=== PATIENT | female | born 1950 | race Caucasian/White ===

== ENCOUNTER 2017-09-14 11:56 | Day surgery (SDC) | payer MEDICARE, MEDICAID ==
[2017-09-11 12:17] LABS: BASOPHILS # (AUTO) 0.1 X10'3 (0-0.2); EOSINOPHILS # (AUTO) 0.5 X10'3 (0-0.9); EOSINOPHILS % (AUTO) 6.1 % (0-6); LYMPHOCYTES # (AUTO) 1.8 X10'3 (1.1-4.8); MEAN CORPUSCULAR HEMOGLOBIN 29.5 PG (27.0-31.0); MEAN CORPUSCULAR HGB CONC 34.3 % (33.0-36.5); MEAN CORPUSCULAR VOLUME 85.9 FL (78-98); MEAN PLATELET VOLUME 7.8 FL (7.4-10.4); MONOCYTES # (AUTO) 0.5 X10'3 (0-0.9); MONOCYTES % (AUTO) 6.1 % (2-12); NEUTROPHILS # (AUTO) 5.9 X10'3 (1.8-7.7); NEUTROPHILS % (AUTO) 66.8 % (42-75); PRE OP HEMATOCRIT 39.2 % (35.0-45.0); PRE OP HEMOGLOBIN 13.4 g/dL (12.0-16.0); PRE OP PLATELET COUNT 239 X10'3 (140-440); RED BLOOD COUNT 4.56 X10'6 (4.20-5.60); RED CELL DISTRIBUTION WIDTH 15.2 % (11.5-14.5)
[2017-09-11 12:18] LABS: PRE OP INR 0.9 INR; PRE OP PROTIME 9.5 SECONDS (9.0-12.0)
[2017-09-11 12:25] LABS: ALBUMIN 3.2 G/DL (3.4-5.0); ALBUMIN/GLOBULIN RATIO 0.8 (1.1-1.5); ALKALINE PHOSPHATASE 106 IU/L (46-116); BLOOD UREA NITROGEN 28 MG/DL (7-18); BUN/CREATININE RATIO 33.3 (6.6-38.0); CALCIUM 8.5 MG/DL (8.5-10.1); CHLORIDE 102 MMOL/L (99-107); CREATININE 0.84 MG/DL (0.40-0.90); PRE OP ALT 23 U/L (30-65); PRE OP ANION GAP 7 (8-16); PRE OP AST 13 U/L (10-37); PRE OP BILIRUB, TOTAL 0.3 MG/DL (0.0-1.0); PRE OP GLUCOSE 95 MG/DL (70-104); PRE OP POTASSIUM 3.5 MMOL/L (3.4-5.1); PRE OP SODIUM 141 MMOL/L (135-145); TOTAL CARBON DIOXIDE 31.8 MMOL/L (24-32); eGFR 68 ML/MIN
[2017-09-14] VITALS (17 sets, daily range): BP systolic 101–167; BP diastolic 55–102
[~2017-09-14] VITALS: Ht 160 cm; Wt 88.1 kg
[~2017-09-14 11:56] MED LIST: ASPI-845 PO; ATOR40TA PO; CLOT15CR5 TOP; CYAN100097 PO; DOCUMENT DATE & TIME OF BETA-BLOCKER PO ONE; FURO-150 PO; GABA600T2 PO; HYDR-569 PO; HYDR12.5 PO; KEN0.1O TP; METO-539 PO; NITR0.3T10 SL; OMEP20CA10 PO; PROM25TA14 PO; VENL75TA90 PO; cefazolin/dext.iso 2gm/50ml 50 ML IV ONE; famotidine 20mg tablet PO ONE; vancomycin inj 1,500 MG in normal saline 300ml IV soln IV ONE
[2017-09-14] MEDS ORDERED: LIDOcaine 1% (10mg/ml) 2ml vial ONE (12:18)
[2017-09-14] MEDS: ringers solution, lacted 1,000 ML IV SCH ×4 (12:42→17:22)
[2017-09-14] MEDS ORDERED: BUPIVAcaine/PF 2.5 mg/ml (0.25%) 30ml vial ONE (12:51)
[2017-09-14] MEDS ORDERED: dexamethasone sod phosphate 4mg/ml inj. ONE (13:15)
[2017-09-14] MEDS ORDERED: sevoflurane 250ml liquid IH ONE (13:15)
[2017-09-14] MEDS ORDERED: fentaNYL/PF 50MCG/1 ML 2ML syringe ONE (13:26)
[2017-09-14] MEDS ORDERED: midazolam 2 mg/2 ml injection ONE (13:38)
[2017-09-14] MEDS ORDERED: LIDOcaine 2% (20mg/ml) 5ml vial ONE (13:50)
[2017-09-14] MEDS ORDERED: ePHEDrine 50MG/ML INJ. ONE (13:50)
[2017-09-14] MEDS ORDERED: propofol inj 20 ML IV ONE (13:50)
[2017-09-14] MEDS ORDERED: ondansetron/PF 4mg/2ml inj IV PRN ×2 (14:55→15:45)
[2017-09-14] MEDS ORDERED: proCHLORperazine 10 MG/2 ml inj IV PRN (14:55)
[2017-09-14] MEDS ORDERED: morphine 4 MG/ML inj SYRINge IV PRN ×3 (14:55→19:55)
[2017-09-14] MEDS ORDERED: hydrALAZINE 20mg/ml inj. IV PRN (14:55)
[2017-09-14] MEDS ORDERED: ringers solution, lacted 1,000 ML IV SCH (14:55)
[2017-09-14] MEDS ORDERED: fentaNYL/PF 50MCG/1 ML 2ML syringe IV PRN ×2 (14:55)
[2017-09-14] MEDS ORDERED: meperidine/PF 50mg/ml syringe IV PRN (14:55)
[2017-09-14] MEDS ORDERED: labetalol 5mg/ml 20ml inj. IV PRN (14:55)
[2017-09-14] MEDS ORDERED: magnesium hydroxide 30ml (MOM) UD suspension PO PRN (15:45)
[2017-09-14] MEDS ORDERED: HYDROmorphone 1 mg/ml syringe IV PRN (15:45)
[2017-09-14] MEDS ORDERED: acetaminophen 325mg tablet PO PRN (15:45)
[2017-09-14] MEDS ORDERED: bisacodyl 10mg suppository rectal RC PRN (15:45)
[2017-09-14] MEDS ORDERED: HYDROcodone/acetaminophen 10/325mg tab PO PRN (15:45)
[2017-09-14] MEDS ORDERED: diphenhydrAMINE 25mg capsule PO PRN ×2 (15:45)
[2017-09-14] MEDS ORDERED: nitroGLYCERIN 0.4mg SUBLingual tab SL PRN (16:00)
[2017-09-14] MEDS: potassium cl 20mEq in 1/2 NS 1,000 ML IV SCH (17:34)
[2017-09-14] MEDS: HYDROcodone/acetaminophen 10/325mg tab PO PRN ×2 (17:34→21:39)
[2017-09-14] MEDS: cefazolin 1gm/NS 100mL 100 ML IV SCH ×2 (17:34→23:29)
[2017-09-14] MEDS: triamcinolone acet 0.1% cream 15gm TP SCH (20:00)
[2017-09-14] MEDS ORDERED: vancomycin/NS 1 GM ADD-VANTAGE 250 ML IV SCH (20:00)
[2017-09-14] MEDS: morphine 4 MG/ML inj SYRINge IV PRN ×2 (20:11→23:28)
[2017-09-14] MEDS: gabapentin 300mg capsule PO SCH (20:12)
[2017-09-14] MEDS ORDERED: sennosides 8.6mg tablet PO SCH (21:00)
[2017-09-15] MEDS: HYDROcodone/acetaminophen 10/325mg tab PO PRN (01:57)
[2017-09-15 02:00] VITALS: BP 118/60
[2017-09-15 03:32] VITALS: BP 122/70
[2017-09-15 05:00] VITALS: BP 106/69
[2017-09-15] MEDS ORDERED: ketorolac tromethamine 15mg/ml inj. IV ONE (05:00)
[2017-09-15] MEDS: potassium cl 20mEq in 1/2 NS 1,000 ML IV SCH (05:03)
[2017-09-15 06:52] LABS: BASOPHILS % (AUTO) 0.5 % (0-1); EOSINOPHILS # (AUTO) 0.1 X10'3 (0-0.9); EOSINOPHILS % (AUTO) 1.1 % (0-6); HEMATOCRIT 35.9 % (35.0-45.0); HEMOGLOBIN 12.3 g/dl (12.0-16.0); LYMPHOCYTES # (AUTO) 0.9 X10'3 (1.1-4.8); LYMPHOCYTES % (AUTO) 9.2 % (21-51); MEAN CORPUSCULAR HEMOGLOBIN 29.9 PG (27.0-31.0); MEAN CORPUSCULAR HGB CONC 34.3 % (33.0-36.5); MEAN CORPUSCULAR VOLUME 87.3 FL (78-98); MEAN PLATELET VOLUME 7.7 FL (7.4-10.4); MONOCYTES # (AUTO) 0.6 X10'3 (0-0.9); NEUTROPHILS # (AUTO) 8.6 X10'3 (1.8-7.7); NEUTROPHILS % (AUTO) 83.2 % (42-75); PLATELET COUNT 271 X10'3 (140-440); RED BLOOD COUNT 4.11 X10'6 (4.20-5.60); RED CELL DISTRIBUTION WIDTH 15.6 % (11.5-14.5); WHITE BLOOD COUNT 10.3 X10'3 (4.5-11.0)
[2017-09-15 07:08] LABS: ALANINE AMINOTRANSFERASE 28 U/L (12-78); ALBUMIN 2.9 G/DL (3.4-5.0); ALBUMIN/GLOBULIN RATIO 0.8 (1.1-1.5); ALKALINE PHOSPHATASE 101 IU/L (46-116); ANION GAP 9 (8-16); ASPARTATE AMINO TRANSFERASE 19 U/L (10-37); BILIRUBIN,TOTAL 0.3 MG/DL (0.1-1.0); BLOOD UREA NITROGEN 21 MG/DL (7-18); BUN/CREATININE RATIO 20.6 (6.6-38.0); CALCIUM 8.5 MG/DL (8.5-10.1); CHLORIDE 104 MMOL/L (99-107); CREATININE 1.02 MG/DL (0.40-0.90); GLUCOSE 161 MG/DL (70-104); POTASSIUM 4.4 MMOL/L (3.5-5.1); SODIUM 140 MMOL/L (135-145); TOTAL PROTEIN 6.5 G/DL (6.4-8.2); eGFR 54 ML/MIN
[2017-09-15] MEDS ORDERED: pantoprazole 40mg Tablet.DR PO SCH (07:30)
[2017-09-15] MEDS: gabapentin 300mg capsule PO SCH (07:34)
[2017-09-15] MEDS ORDERED: oxyCODONE/APAP 10/325mg tablet PO PRN ×2 (07:35→09:20)
[2017-09-15] MEDS: triamcinolone acet 0.1% cream 15gm TP SCH (07:36)
[2017-09-15] MEDS ORDERED: OXYC-150 PO (07:39)
[2017-09-15] MEDS ORDERED: venlafaxine XR 75mg capsule (Q24H) PO SCH (08:00)
[2017-09-15] MEDS ORDERED: furosemide 20MG tablet PO SCH (08:00)
[2017-09-15] MEDS ORDERED: aspirin 325mg tablet, delayed-release (Ecotrin) PO SCH (08:00)
[2017-09-15] MEDS ORDERED: metoprolol succinate 25mg (24-HOUR) SR. Tablet PO SCH (08:00)
== END 2017-09-15 10:19 | disposition home or self-care (01) ==
LOC: PAS 11:56 → ORTHO 4S 15:43 → PAS 09-15 10:19
PROVIDERS: ATTEND Orthopaedic Surgery
DX: S52.572A Other intraarticular fracture of lower end of left radius, initial encounter for closed fracture (principal); G56.02 Carpal tunnel syndrome, left upper limb; W19.XXXA Unspecified fall, initial encounter; Y93.89 Activity, other specified; Y92.89 Other specified places as the place of occurrence of the external cause; Y99.8 Other external cause status; Z90.49 Acquired absence of other specified parts of digestive tract; Z90.710 Acquired absence of both cervix and uterus; I10 Essential (primary) hypertension; I25.2 Old myocardial infarction; M19.90 Unspecified osteoarthritis, unspecified site; F41.8 Other specified anxiety disorders; Z87.891 Personal history of nicotine dependence; Z98.890 Other specified postprocedural states; I25.10 Atherosclerotic heart disease of native coronary artery without angina pectoris; K21.9 Gastro-esophageal reflux disease without esophagitis; E78.4 Other hyperlipidemia; Z79.82 Long term (current) use of aspirin; Z79.899 Other long term (current) drug therapy; M79.7 Fibromyalgia; Z95.5 Presence of coronary angioplasty implant and graft
CPT/HCPCS: 25609; 36415; 64721; 80053; 85025; 85610; 85730; 87070; A6223; A6449; C1713; J0690; J1100; J1885; J2001; J2175; J2250; J2270; J2704; J3010; J3370; J3490; J7120; Q0163; A7000

== ENCOUNTER 2018-01-18 05:36 | Day surgery (SDC) | payer MEDICARE, MEDICAID ==
[2018-01-16 16:31] LABS: BASOPHILS % (AUTO) 0.6 % (0-1); EOSINOPHILS # (AUTO) 0.3 X10'3 (0-0.9); EOSINOPHILS % (AUTO) 3.5 % (0-6); LYMPHOCYTES # (AUTO) 1.5 X10'3 (1.1-4.8); LYMPHOCYTES % (AUTO) 19.7 % (21-51); MEAN CORPUSCULAR HEMOGLOBIN 27.3 PG (27.0-31.0); MEAN CORPUSCULAR HGB CONC 32.7 % (33.0-36.5); MEAN CORPUSCULAR VOLUME 83.4 FL (78-98); MEAN PLATELET VOLUME 9.1 FL (7.4-10.4); MONOCYTES # (AUTO) 0.4 X10'3 (0-0.9); MONOCYTES % (AUTO) 5.4 % (2-12); NEUTROPHILS # (AUTO) 5.6 X10'3 (1.8-7.7); NEUTROPHILS % (AUTO) 70.8 % (42-75); PRE OP HEMATOCRIT 36.6 % (35.0-45.0); PRE OP PLATELET COUNT 394 X10'3 (140-440); RED BLOOD COUNT 4.38 X10'6 (4.20-5.60); RED CELL DISTRIBUTION WIDTH 16.7 % (11.5-14.5)
[2018-01-16 16:42] LABS: PRE OP PROTIME 10.5 SECONDS (9.0-12.0)
[2018-01-16 16:49] LABS: ALBUMIN 2.4 G/DL (3.4-5.0); ALBUMIN/GLOBULIN RATIO 0.5 (1.1-1.5); ALKALINE PHOSPHATASE 229 IU/L (46-116); BLOOD UREA NITROGEN 16 MG/DL (7-18); BUN/CREATININE RATIO 16.5 (6.6-38.0); CALCIUM 9.8 MG/DL (8.5-10.1); CHLORIDE 100 MMOL/L (99-107); CREATININE 0.97 MG/DL (0.40-0.90); PRE OP ALT 59 U/L (30-65); PRE OP ANION GAP 6 (8-16); PRE OP AST 57 U/L (10-37); PRE OP BILIRUB, TOTAL 0.2 MG/DL (0.0-1.0); PRE OP GLUCOSE 130 MG/DL (70-104); PRE OP POTASSIUM 3.7 MMOL/L (3.4-5.1); PRE OP SODIUM 139 MMOL/L (135-145); TOTAL CARBON DIOXIDE 32.6 MMOL/L (24-32); TOTAL PROTEIN 7.6 G/DL (6.4-8.2); eGFR 57 ML/MIN
[~2018-01-18] VITALS: Ht 160 cm; Wt 76.4 kg
[2018-01-18] VITALS (18 sets, daily range): BP systolic 101–134; BP diastolic 49–83
[~2018-01-18 05:36] MED LIST changes: +ALBU6.7H INH; +ALPR-623 PO; -ASPI-845 PO; +ATOR10TA87 PO; -ATOR40TA PO; -CLOT15CR5 TOP; +CLOT15CR73 TOP; -CYAN100097 PO; +HYDR-3972 PO; -HYDR-569 PO; -KEN0.1O TP; +MECL-111 PO; +VENL150C2 PO; -VENL75TA90 PO; +albuterol 2.5 MG/3 ML nebule NEB ONE; +ceFAZolin 2gm in dextrose, iso 100 ML IV ONE; -cefazolin/dext.iso 2gm/50ml 50 ML IV ONE
[2018-01-18] MEDS ORDERED: LIDOcaine 1% (10mg/ml) 2ml vial ONE (05:50)
[2018-01-18] MEDS: ringers solution, lacted 1,000 ML IV SCH ×2 (06:12→11:31)
[2018-01-18] MEDS ORDERED: ROPIVAcaine 0.5% (5mg/ml) 30ml vial ONE (06:43)
[2018-01-18] MEDS ORDERED: ketamine 50mg/5ml syringe ONE (07:14)
[2018-01-18] MEDS ORDERED: acetaminophen 1,000mg/100ml IV 100 ML IV ONE (07:15)
[2018-01-18] MEDS ORDERED: sevoflurane 250ml liquid IH ONE (07:17)
[2018-01-18] MEDS ORDERED: midazolam 2 mg/2 ml injection ONE (07:18)
[2018-01-18] MEDS ORDERED: fentaNYL /PF 50mcg/ml 5ml ampule ONE ×2 (07:18→08:46)
[2018-01-18] MEDS ORDERED: ringers solution, lacted 1,000 ML IV SCH (08:38)
[2018-01-18] MEDS ORDERED: labetalol 20mg/4ml (5mg/ml) syringe IV PRN (08:40)
[2018-01-18] MEDS ORDERED: morphine 4 MG/ML inj SYRINge IV PRN (08:40)
[2018-01-18] MEDS ORDERED: fentaNYL/PF 50MCG/1 ML 2ML syringe IV PRN ×2 (08:40)
[2018-01-18] MEDS ORDERED: ondansetron/PF 4mg/2ml inj IV PRN ×2 (08:40→10:10)
[2018-01-18] MEDS ORDERED: hydrALAZINE 20mg/ml inj. IV PRN (08:40)
[2018-01-18] MEDS ORDERED: nitroGLYCERIN 0.4mg SUBLingual tab SL PRN (10:05)
[2018-01-18] MEDS ORDERED: albuterol 2.5 MG/3 ML nebule NEB PRN (10:05)
[2018-01-18] MEDS ORDERED: bisacodyl 10mg suppository rectal RC PRN (10:10)
[2018-01-18] MEDS ORDERED: HYDROmorphone inj. 0.5 MG/0.5 ML DISP.SYRIN IV PRN (10:10)
[2018-01-18] MEDS ORDERED: oxyCODONE IR 5mg (immed. release) tablet PO PRN (10:10)
[2018-01-18] MEDS ORDERED: magnesium hydroxide 30ml (MOM) UD suspension PO PRN (10:10)
[2018-01-18] MEDS ORDERED: diphenhydrAMINE 25mg capsule PO PRN ×2 (10:10)
[2018-01-18] MEDS: morphine 4 MG/ML inj SYRINge IV PRN ×2 (10:20→10:37)
[2018-01-18] MEDS: oxyCODONE IR 5mg (immed. release) tablet PO PRN ×4 (10:41→22:32)
[2018-01-18] MEDS: potassium Cl 20mEq in NS 1,000 ML IV SCH ×2 (11:34→16:03)
[2018-01-18] MEDS ORDERED: HYDROmorphone 1 mg/ml syringe ONE ×3 (12:14→20:01)
[2018-01-18] MEDS: meclizine 12.5mg tablet PO SCH (16:03)
[2018-01-18] MEDS: gabapentin 300mg capsule PO SCH (16:03)
[2018-01-18] MEDS: ceFAZolin 1GM/D5W- ADD-VANTAGE 50 ML IV SCH (16:03)
[2018-01-18] MEDS ORDERED: pantoprazole 40mg Tablet.DR PO SCH (20:00)
[2018-01-18] MEDS ORDERED: vancomycin/NS 1 GM ADD-VANTAGE 250 ML IV SCH (20:00)
[2018-01-18] MEDS: sennosides 8.6mg tablet PO SCH ×2 (20:03→20:15)
[2018-01-19] MEDS: gabapentin 300mg capsule PO SCH ×3 (00:33→15:36)
[2018-01-19] MEDS: ceFAZolin 1GM/D5W- ADD-VANTAGE 50 ML IV SCH (00:33)
[2018-01-19] MEDS: meclizine 12.5mg tablet PO SCH ×3 (00:34→15:35)
[2018-01-19] MEDS: HYDROmorphone 1 mg/ml syringe IV PRN ×2 (00:43→05:26)
[2018-01-19 02:10] VITALS: BP 112/72
[2018-01-19] MEDS: oxyCODONE IR 5mg (immed. release) tablet PO PRN ×4 (02:47→20:22)
[2018-01-19 05:00] VITALS: BP 104/56
[2018-01-19 06:58] LABS: BASOPHILS % (AUTO) 0.5 % (0-1); EOSINOPHILS # (AUTO) 0.3 X10'3 (0-0.9); EOSINOPHILS % (AUTO) 3.4 % (0-6); HEMATOCRIT 32.1 % (35.0-45.0); HEMOGLOBIN 10.7 g/dl (12.0-16.0); LYMPHOCYTES # (AUTO) 1.2 X10'3 (1.1-4.8); LYMPHOCYTES % (AUTO) 13.9 % (21-51); MEAN CORPUSCULAR HEMOGLOBIN 28.3 PG (27.0-31.0); MEAN CORPUSCULAR HGB CONC 33.3 % (33.0-36.5); MEAN CORPUSCULAR VOLUME 84.9 FL (78-98); MEAN PLATELET VOLUME 8.5 FL (7.4-10.4); MONOCYTES # (AUTO) 0.6 X10'3 (0-0.9); MONOCYTES % (AUTO) 6.6 % (2-12); NEUTROPHILS # (AUTO) 6.8 X10'3 (1.8-7.7); NEUTROPHILS % (AUTO) 75.6 % (42-75); PLATELET COUNT 396 X10'3 (140-440); RED BLOOD COUNT 3.78 X10'6 (4.20-5.60); WHITE BLOOD COUNT 8.9 X10'3 (4.5-11.0)
[2018-01-19 07:46] LABS: ANION GAP 8 (8-16); CHLORIDE 103 MMOL/L (99-107); SODIUM 139 MMOL/L (135-145); TOTAL CARBON DIOXIDE 28.5 MMOL/L (24-32)
[2018-01-19] MEDS: furosemide 20MG tablet PO SCH (08:00)
[2018-01-19] MEDS: HYDROchlorothiazide 12.5mg capsule PO SCH (08:00)
[2018-01-19] MEDS: metoprolol succinate 25mg (24-HOUR) SR. Tablet PO SCH (08:00)
[2018-01-19] MEDS: pantoprazole 40mg Tablet.DR PO SCH (08:54)
[2018-01-19] MEDS: potassium Cl 20mEq in NS 1,000 ML IV SCH (08:56)
[2018-01-19 10:00] VITALS: BP 100/60
[2018-01-19 13:37] VITALS: BP 123/74
[2018-01-19 18:00] VITALS: BP 100/49
[2018-01-19] MEDS: sennosides 8.6mg tablet PO SCH (20:19)
[2018-01-19] MEDS: acetaminophen 325mg tablet PO PRN (20:22)
[2018-01-19 22:00] VITALS: BP 132/73
[2018-01-20] MEDS: meclizine 12.5mg tablet PO SCH ×2 (00:02→08:56)
[2018-01-20] MEDS: gabapentin 300mg capsule PO SCH ×3 (00:02→16:33)
[2018-01-20] MEDS: oxyCODONE IR 5mg (immed. release) tablet PO PRN ×3 (00:03→13:24)
[2018-01-20 06:00] VITALS: BP 117/67
[2018-01-20 06:08] LABS: BASOPHILS % (AUTO) 0.6 % (0-1); EOSINOPHILS # (AUTO) 0.3 X10'3 (0-0.9); EOSINOPHILS % (AUTO) 4.6 % (0-6); HEMATOCRIT 30.8 % (35.0-45.0); HEMOGLOBIN 10.2 g/dl (12.0-16.0); LYMPHOCYTES # (AUTO) 1.5 X10'3 (1.1-4.8); MEAN CORPUSCULAR HEMOGLOBIN 27.9 PG (27.0-31.0); MEAN CORPUSCULAR HGB CONC 33.1 % (33.0-36.5); MEAN CORPUSCULAR VOLUME 84.3 FL (78-98); MEAN PLATELET VOLUME 7.9 FL (7.4-10.4); MONOCYTES # (AUTO) 0.7 X10'3 (0-0.9); MONOCYTES % (AUTO) 8.8 % (2-12); NEUTROPHILS # (AUTO) 4.9 X10'3 (1.8-7.7); PLATELET COUNT 359 X10'3 (140-440); RED BLOOD COUNT 3.65 X10'6 (4.20-5.60); RED CELL DISTRIBUTION WIDTH 16.8 % (11.5-14.5); WHITE BLOOD COUNT 7.4 X10'3 (4.5-11.0)
[2018-01-20] MEDS: pantoprazole 40mg Tablet.DR PO SCH (08:47)
[2018-01-20] MEDS: HYDROchlorothiazide 12.5mg capsule PO SCH (09:01)
[2018-01-20] MEDS: furosemide 20MG tablet PO SCH (09:01)
[2018-01-20] MEDS: metoprolol succinate 25mg (24-HOUR) SR. Tablet PO SCH (09:01)
[2018-01-20] MEDS ORDERED: scopolamine 1.5mg patch.TD72 TD ONE (13:10)
[2018-01-20] MEDS: acetaminophen 325mg tablet PO PRN (13:20)
== END 2018-01-20 18:19 | disposition home or self-care (01) ==
LOC: PAS 05:36 → ORTHO 4S 10:06 → PAS 01-20 18:19
PROVIDERS: ATTEND Orthopaedic Surgery
DX: S52.392A Other fracture of shaft of radius, left arm, initial encounter for closed fracture (principal); I12.9 Hypertensive chronic kidney disease with stage 1 through stage 4 chronic kidney disease, or unspecified chronic kidney disease; N18.9 Chronic kidney disease, unspecified; K21.9 Gastro-esophageal reflux disease without esophagitis; I25.10 Atherosclerotic heart disease of native coronary artery without angina pectoris; F41.8 Other specified anxiety disorders; J44.0 Chronic obstructive pulmonary disease with (acute) lower respiratory infection; I25.2 Old myocardial infarction; G43.909 Migraine, unspecified, not intractable, without status migrainosus; M19.90 Unspecified osteoarthritis, unspecified site; M79.7 Fibromyalgia; E03.9 Hypothyroidism, unspecified; E78.5 Hyperlipidemia, unspecified; E66.9 Obesity, unspecified; G89.29 Other chronic pain; Z72.89 Other problems related to lifestyle; Z86.74 Personal history of sudden cardiac arrest; Z95.5 Presence of coronary angioplasty implant and graft; Z68.29 Body mass index [BMI] 29.0-29.9, adult; Z86.73 Personal history of transient ischemic attack (TIA), and cerebral infarction without residual deficits; Z79.891 Long term (current) use of opiate analgesic; Z87.891 Personal history of nicotine dependence; Z90.49 Acquired absence of other specified parts of digestive tract; Z90.710 Acquired absence of both cervix and uterus; Z98.890 Other specified postprocedural states; Z79.899 Other long term (current) drug therapy; W19.XXXA Unspecified fall, initial encounter; Y93.89 Activity, other specified; Y92.89 Other specified places as the place of occurrence of the external cause; Y99.8 Other external cause status
CPT/HCPCS: 25515; 36415; 71046; 80051; 80053; 85025; 85610; 85730; 94640; 94760; A6209; A6212; A6223; A6449; C1713; J0131; J0690; J1170; J2250; J2270; J2405; J2795; J3010; J3370; J3490; J7120; J8597; A7000

== ENCOUNTER 2018-04-16 05:50 | Inpatient (IN) | payer MEDICARE, MEDICAID ==
[2018-04-11 16:35] LABS: BASOPHILS # (AUTO) 0.1 X10'3 (0-0.2); EOSINOPHILS # (AUTO) 0.4 X10'3 (0-0.9); EOSINOPHILS % (AUTO) 5.8 % (0-6); LYMPHOCYTES # (AUTO) 1.8 X10'3 (1.1-4.8); LYMPHOCYTES % (AUTO) 27.3 % (21-51); MEAN CORPUSCULAR HEMOGLOBIN 28.1 PG (27.0-31.0); MEAN CORPUSCULAR VOLUME 82.6 FL (78-98); MEAN PLATELET VOLUME 8.3 FL (7.4-10.4); MONOCYTES # (AUTO) 0.6 X10'3 (0-0.9); MONOCYTES % (AUTO) 9.4 % (2-12); NEUTROPHILS # (AUTO) 3.7 X10'3 (1.8-7.7); NEUTROPHILS % (AUTO) 56.5 % (42-75); PRE OP HEMATOCRIT 35.3 % (35.0-45.0); PRE OP PLATELET COUNT 293 X10'3 (140-440); RED BLOOD COUNT 4.27 X10'6 (4.20-5.60); RED CELL DISTRIBUTION WIDTH 17.7 % (11.5-14.5)
[2018-04-11 16:45] LABS: PRE OP PROTIME 10.1 SECONDS (9.0-12.0)
[2018-04-11 16:49] LABS: ALBUMIN 3.5 G/DL (3.4-5.0); ALKALINE PHOSPHATASE 113 IU/L (46-116); BLOOD UREA NITROGEN 24 MG/DL (7-18); BUN/CREATININE RATIO 22.2 (6.6-38.0); CALCIUM 9.1 MG/DL (8.5-10.1); CHLORIDE 104 MMOL/L (99-107); CREATININE 1.08 MG/DL (0.40-0.90); PRE OP ALT 29 U/L (30-65); PRE OP ANION GAP 9 (8-16); PRE OP AST 11 U/L (10-37); PRE OP BILIRUB, TOTAL 0.4 MG/DL (0.0-1.0); PRE OP GLUCOSE 119 MG/DL (70-104); PRE OP POTASSIUM 3.5 MMOL/L (3.4-5.1); PRE OP SODIUM 140 MMOL/L (135-145); TOTAL CARBON DIOXIDE 27.2 MMOL/L (24-32); TOTAL PROTEIN 6.9 G/DL (6.4-8.2); eGFR 51 ML/MIN
[2018-04-16] VITALS (23 sets, daily range): BP systolic 91–135; BP diastolic 54–91
[~2018-04-16] VITALS: Ht 157.5 cm; Wt 74.1 kg
[~2018-04-16 05:50] MED LIST changes: +ASPI-1265 PO; -ATOR10TA87 PO; +ATOR40TA3 PO; -CLOT15CR73 TOP; +CYAN-19 PO; +Cefazolin 2GM/50ML dext iso,osmotic IVPB IV ONE; -ceFAZolin 2gm in dextrose, iso 100 ML IV ONE; +ringers solution, lacted 1,000 ML IV SCH
[2018-04-16] MEDS ORDERED: ceFAZolin 1000mg inj ONE (06:45)
[2018-04-16] MEDS ORDERED: tetracaine 1% (10mg/ml) pres. free inj. ONE (07:19)
[2018-04-16] MEDS ORDERED: cloNIDine hcl/PF 100mcg/ml inj ONE (07:19)
[2018-04-16] MEDS ORDERED: MIDAZolam 1mg/ml 10ml vial ONE (07:25)
[2018-04-16] MEDS ORDERED: fentaNYL/PF 50MCG/1 ML 2ML syringe ONE (07:25)
[2018-04-16] MEDS ORDERED: BUPIVAcaine/dex-water/PF 7.5 mg/ml 2ml ampul ONE (07:29)
[2018-04-16] MEDS ORDERED: ringers solution, lacted 1,000 ML IV SCH (08:37)
[2018-04-16] MEDS ORDERED: ondansetron/PF 4mg/2ml inj IV PRN ×2 (08:40→10:35)
[2018-04-16] MEDS ORDERED: meperidine/PF 25mg/ml syringe IV PRN ×2 (08:40)
[2018-04-16] MEDS ORDERED: proCHLORperazine 10 MG/2 ml inj IV PRN (08:40)
[2018-04-16] MEDS ORDERED: morphine 4 MG/ML inj SYRINge IV PRN ×2 (08:40)
[2018-04-16] MEDS ORDERED: propofol inj 20 ML IV ONE (09:58)
[2018-04-16] MEDS ORDERED: HYDROmorphone 1 mg/ml syringe IV PRN (10:35)
[2018-04-16] MEDS ORDERED: acetaminophen 325mg tablet PO PRN (10:35)
[2018-04-16] MEDS ORDERED: diphenhydrAMINE 25mg capsule PO PRN ×2 (10:35)
[2018-04-16] MEDS ORDERED: bisacodyl 10mg suppository rectal RC PRN (10:35)
[2018-04-16] MEDS ORDERED: magnesium hydroxide 30ml (MOM) UD suspension PO PRN (10:35)
[2018-04-16] MEDS ORDERED: meclizine 12.5mg tablet PO PRN (10:45)
[2018-04-16] MEDS ORDERED: albuterol 2.5 MG/3 ML nebule NEB PRN (10:45)
[2018-04-16] MEDS ORDERED: nitroGLYCERIN 0.4mg SUBLingual tab SL PRN (10:45)
[2018-04-16] MEDS: meperidine/PF 25mg/ml syringe IV PRN ×2 (11:47→12:01)
[2018-04-16] MEDS: potassium Cl 20mEq in NS 1,000 ML IV SCH ×3 (14:22→23:52)
[2018-04-16] MEDS: HYDROcodone/acetaminophen 10/325mg tab PO PRN ×2 (14:46→19:49)
[2018-04-16] MEDS: gabapentin 300mg capsule PO SCH ×2 (16:00→23:53)
[2018-04-16] MEDS: ceFAZolin 1GM/D5W- ADD-VANTAGE 50 ML IV SCH ×2 (16:44→23:54)
[2018-04-16] MEDS: aspirin 81mg tab.chew PO SCH (16:44)
[2018-04-16] MEDS ORDERED: vancomycin/NS 1 GM ADD-VANTAGE 250 ML IV SCH (20:00)
[2018-04-16] MEDS: sennosides 8.6mg tablet PO SCH (21:00)
[2018-04-17] VITALS (7 sets, daily range): BP systolic 88–103; BP diastolic 46–60
[2018-04-17] MEDS: HYDROcodone/acetaminophen 10/325mg tab PO PRN ×6 (00:05→23:30)
[2018-04-17 04:51] LABS: BASOPHILS % (AUTO) 0.5 % (0-1); EOSINOPHILS # (AUTO) 0.3 X10'3 (0-0.9); EOSINOPHILS % (AUTO) 5.3 % (0-6); HEMATOCRIT 27.9 % (35.0-45.0); HEMOGLOBIN 9.3 g/dl (12.0-16.0); LYMPHOCYTES # (AUTO) 0.9 X10'3 (1.1-4.8); LYMPHOCYTES % (AUTO) 17.1 % (21-51); MEAN CORPUSCULAR HEMOGLOBIN 27.9 PG (27.0-31.0); MEAN CORPUSCULAR HGB CONC 33.5 % (33.0-36.5); MEAN CORPUSCULAR VOLUME 83.4 FL (78-98); MEAN PLATELET VOLUME 8.5 FL (7.4-10.4); MONOCYTES # (AUTO) 0.6 X10'3 (0-0.9); MONOCYTES % (AUTO) 10.7 % (2-12); NEUTROPHILS # (AUTO) 3.6 X10'3 (1.8-7.7); NEUTROPHILS % (AUTO) 66.4 % (42-75); PLATELET COUNT 223 X10'3 (140-440); RED BLOOD COUNT 3.35 X10'6 (4.20-5.60); WHITE BLOOD COUNT 5.4 X10'3 (4.5-11.0)
[2018-04-17 05:45] LABS: ALANINE AMINOTRANSFERASE 32 U/L (12-78); ALBUMIN 2.5 G/DL (3.4-5.0); ALBUMIN/GLOBULIN RATIO 0.9 (1.1-1.5); ALKALINE PHOSPHATASE 89 IU/L (46-116); ANION GAP 6 (8-16); ASPARTATE AMINO TRANSFERASE 25 U/L (10-37); BILIRUBIN,TOTAL 0.6 MG/DL (0.1-1.0); BLOOD UREA NITROGEN 19 MG/DL (7-18); BUN/CREATININE RATIO 17.3 (6.6-38.0); CALCIUM 8.1 MG/DL (8.5-10.1); CHLORIDE 105 MMOL/L (99-107); GLUCOSE 86 MG/DL (70-104); POTASSIUM 3.9 MMOL/L (3.5-5.1); SODIUM 140 MMOL/L (135-145); TOTAL CARBON DIOXIDE 28.7 MMOL/L (24-32); TOTAL PROTEIN 5.3 G/DL (6.4-8.2); eGFR 50 ML/MIN
[2018-04-17] MEDS: pantoprazole 40mg Tablet.DR PO SCH (07:39)
[2018-04-17] MEDS: aspirin 81mg tab.chew PO SCH ×2 (07:39→17:32)
[2018-04-17] MEDS: gabapentin 300mg capsule PO SCH ×3 (07:39→23:30)
[2018-04-17] MEDS: furosemide 20MG tablet PO SCH (07:41)
[2018-04-17] MEDS: metoprolol succinate 25mg (24-HOUR) SR. Tablet PO SCH (07:41)
[2018-04-17] MEDS: HYDROchlorothiazide 25mg tablet PO SCH (07:41)
[2018-04-17] MEDS: venlafaxine XR 75mg capsule (Q24H) PO SCH (07:42)
[2018-04-17] MEDS ORDERED: ketorolac tromethamine 15mg/ml inj. IV SCH (14:00)
[2018-04-17] MEDS ORDERED: ketorolac tromethamine 15mg/ml inj. IV PRN (17:20)
[2018-04-17] MEDS: sennosides 8.6mg tablet PO SCH (23:30)
[2018-04-18] MEDS: HYDROcodone/acetaminophen 10/325mg tab PO PRN ×3 (05:20→21:15)
[2018-04-18 05:21] LABS: BASOPHILS % (AUTO) 0.4 % (0-1); EOSINOPHILS # (AUTO) 0.4 X10'3 (0-0.9); EOSINOPHILS % (AUTO) 5.9 % (0-6); HEMATOCRIT 26.8 % (35.0-45.0); HEMOGLOBIN 8.9 g/dl (12.0-16.0); LYMPHOCYTES # (AUTO) 1.1 X10'3 (1.1-4.8); LYMPHOCYTES % (AUTO) 17.8 % (21-51); MEAN CORPUSCULAR HEMOGLOBIN 27.8 PG (27.0-31.0); MEAN CORPUSCULAR HGB CONC 33.1 % (33.0-36.5); MEAN CORPUSCULAR VOLUME 83.8 FL (78-98); MEAN PLATELET VOLUME 8.6 FL (7.4-10.4); MONOCYTES # (AUTO) 0.7 X10'3 (0-0.9); MONOCYTES % (AUTO) 11.1 % (2-12); NEUTROPHILS % (AUTO) 64.8 % (42-75); PLATELET COUNT 227 X10'3 (140-440); WHITE BLOOD COUNT 6.2 X10'3 (4.5-11.0)
[2018-04-18 05:38] LABS: ALANINE AMINOTRANSFERASE 17 U/L (12-78); ALBUMIN 2.4 G/DL (3.4-5.0); ALBUMIN/GLOBULIN RATIO 0.8 (1.1-1.5); ALKALINE PHOSPHATASE 86 IU/L (46-116); ANION GAP 4 (8-16); ASPARTATE AMINO TRANSFERASE 15 U/L (10-37); BILIRUBIN,TOTAL 0.4 MG/DL (0.1-1.0); BLOOD UREA NITROGEN 20 MG/DL (7-18); CALCIUM 8.6 MG/DL (8.5-10.1); CHLORIDE 105 MMOL/L (99-107); CREATININE 1.05 MG/DL (0.40-0.90); GLUCOSE 107 MG/DL (70-104); POTASSIUM 3.6 MMOL/L (3.5-5.1); SODIUM 140 MMOL/L (135-145); TOTAL CARBON DIOXIDE 31.4 MMOL/L (24-32); TOTAL PROTEIN 5.5 G/DL (6.4-8.2); eGFR 52 ML/MIN
[2018-04-18 06:38] VITALS: BP 97/51
[2018-04-18] MEDS: aspirin 81mg tab.chew PO SCH ×2 (07:44→16:23)
[2018-04-18] MEDS: gabapentin 300mg capsule PO SCH ×3 (07:44→23:52)
[2018-04-18] MEDS: pantoprazole 40mg Tablet.DR PO SCH (07:44)
[2018-04-18] MEDS: venlafaxine XR 75mg capsule (Q24H) PO SCH (07:44)
[2018-04-18] MEDS: potassium Cl 20mEq in NS 1,000 ML IV SCH ×2 (07:45→07:53)
[2018-04-18] MEDS: furosemide 20MG tablet PO SCH (08:00)
[2018-04-18] MEDS: metoprolol succinate 25mg (24-HOUR) SR. Tablet PO SCH (08:00)
[2018-04-18] MEDS: HYDROchlorothiazide 25mg tablet PO SCH (08:00)
[2018-04-18 09:00] VITALS: BP 92/44
[2018-04-18] MEDS ORDERED: WALKERFR (10:15)
[2018-04-18 11:00] VITALS: BP 92/55
[2018-04-18 11:15] VITALS: BP 91/55
[2018-04-18 18:00] VITALS: BP 101/55
[2018-04-18] MEDS: sennosides 8.6mg tablet PO SCH (21:14)
[2018-04-18 22:00] VITALS: BP 95/53
[2018-04-19] MEDS: HYDROcodone/acetaminophen 10/325mg tab PO PRN ×2 (04:47→09:29)
[2018-04-19] MEDS ORDERED: ASPI-1265 PO (06:01)
[2018-04-19] MEDS ORDERED: HYDR-3972 PO (06:01)
[2018-04-19 06:06] LABS: BASOPHILS % (AUTO) 0.7 % (0-1); EOSINOPHILS # (AUTO) 0.3 X10'3 (0-0.9); EOSINOPHILS % (AUTO) 4.8 % (0-6); HEMATOCRIT 26.3 % (35.0-45.0); HEMOGLOBIN 8.4 g/dl (12.0-16.0); LYMPHOCYTES # (AUTO) 0.9 X10'3 (1.1-4.8); LYMPHOCYTES % (AUTO) 13.9 % (21-51); MEAN CORPUSCULAR HEMOGLOBIN 26.9 PG (27.0-31.0); MEAN CORPUSCULAR HGB CONC 32.2 % (33.0-36.5); MEAN CORPUSCULAR VOLUME 83.6 FL (78-98); MEAN PLATELET VOLUME 8.7 FL (7.4-10.4); MONOCYTES # (AUTO) 0.7 X10'3 (0-0.9); MONOCYTES % (AUTO) 10.8 % (2-12); NEUTROPHILS # (AUTO) 4.5 X10'3 (1.8-7.7); NEUTROPHILS % (AUTO) 69.8 % (42-75); PLATELET COUNT 221 X10'3 (140-440); RED BLOOD COUNT 3.14 X10'6 (4.20-5.60); WHITE BLOOD COUNT 6.5 X10'3 (4.5-11.0)
[2018-04-19 06:10] VITALS: BP 100/52
[2018-04-19 06:55] LABS: ALANINE AMINOTRANSFERASE 15 U/L (12-78); ALBUMIN 2.3 G/DL (3.4-5.0); ALBUMIN/GLOBULIN RATIO 0.7 (1.1-1.5); ALKALINE PHOSPHATASE 82 IU/L (46-116); ANION GAP 6 (8-16); ASPARTATE AMINO TRANSFERASE 12 U/L (10-37); BILIRUBIN,TOTAL 0.4 MG/DL (0.1-1.0); BLOOD UREA NITROGEN 16 MG/DL (7-18); BUN/CREATININE RATIO 17.2 (6.6-38.0); CALCIUM 8.4 MG/DL (8.5-10.1); CHLORIDE 104 MMOL/L (99-107); CREATININE 0.93 MG/DL (0.40-0.90); GLUCOSE 85 MG/DL (70-104); POTASSIUM 3.9 MMOL/L (3.5-5.1); SODIUM 139 MMOL/L (135-145); TOTAL CARBON DIOXIDE 29.3 MMOL/L (24-32); TOTAL PROTEIN 5.7 G/DL (6.4-8.2); eGFR 60 ML/MIN
[2018-04-19] MEDS: aspirin 81mg tab.chew PO SCH (07:51)
[2018-04-19] MEDS: gabapentin 300mg capsule PO SCH (07:51)
[2018-04-19] MEDS: pantoprazole 40mg Tablet.DR PO SCH (07:51)
[2018-04-19] MEDS: venlafaxine XR 75mg capsule (Q24H) PO SCH (07:51)
[2018-04-19] MEDS: furosemide 20MG tablet PO SCH (07:54)
[2018-04-19] MEDS: HYDROchlorothiazide 25mg tablet PO SCH (07:54)
[2018-04-19] MEDS: metoprolol succinate 25mg (24-HOUR) SR. Tablet PO SCH (07:55)
[2018-04-19 10:00] VITALS: BP 93/58
== END 2018-04-19 16:40 | disposition home or self-care (01) | DRG 470 ==
LOC: PAS IN 05:50 → EDSTATUS 07:30 → ORTHO 4S 12:19 → EDSTATUS 14:00
PROVIDERS: ADMIT Orthopaedic Surgery; ATTEND Orthopaedic Surgery
PROC: 3E0T3BZ Introduction of Anesthetic Agent into Peripheral Nerves and Plexi, Percutaneous Approach (ICD-10-PCS; 2018-04-16)
PROC: 0SRC0J9 Replacement of Right Knee Joint with Synthetic Substitute, Cemented, Open Approach (ICD-10-PCS; principal; 2018-04-16 07:22)
DX: M17.11 Unilateral primary osteoarthritis, right knee (principal); D62 Acute posthemorrhagic anemia; I10 Essential (primary) hypertension; I25.10 Atherosclerotic heart disease of native coronary artery without angina pectoris; K21.9 Gastro-esophageal reflux disease without esophagitis; R42 Dizziness and giddiness; M79.7 Fibromyalgia; J44.9 Chronic obstructive pulmonary disease, unspecified; F41.8 Other specified anxiety disorders; F32.9 Major depressive disorder, single episode, unspecified; G43.909 Migraine, unspecified, not intractable, without status migrainosus; F17.200 Nicotine dependence, unspecified, uncomplicated; Z90.49 Acquired absence of other specified parts of digestive tract; Z90.710 Acquired absence of both cervix and uterus; Z79.899 Other long term (current) drug therapy
CPT/HCPCS: 36415; 80053; 85025; 85610; 85730; 86870; 86885; 86900; 86901; 86902; 86905; 86922; 87070; 97110; 97116; 97162; 97530; A6258; A6449; A6454; A7000; C1713; C1758; C1776; J0690; J0735; J1170; J1885; J2175; J2250; J2405; J2704; J3010; J3370; J3490; J7030; J7120; J8597

== ENCOUNTER 2018-09-11 16:43 | Emergency (ER) | payer MEDICARE, MEDICAID ==
[~2018-09-11 16:43] MED LIST changes: -ATOR40TA3 PO; -CYAN-19 PO; -Cefazolin 2GM/50ML dext iso,osmotic IVPB IV ONE; -DOCUMENT DATE & TIME OF BETA-BLOCKER PO ONE; +GABA600T13 PO; -GABA600T2 PO; +WALKERFR; -albuterol 2.5 MG/3 ML nebule NEB ONE; -famotidine 20mg tablet PO ONE; -ringers solution, lacted 1,000 ML IV SCH; -vancomycin inj 1,500 MG in normal saline 300ml IV soln IV ONE
== END 2018-09-11 17:57 | disposition left against medical advice (07) ==
LOC: ER 16:43
DX: M54.9 Dorsalgia, unspecified (principal); Z53.21 Procedure and treatment not carried out due to patient leaving prior to being seen by health care provider

== ENCOUNTER 2018-09-13 14:28 | Emergency (ER) | payer MEDICARE, MEDICAID ==
[~2018-09-13] VITALS: Ht 160 cm; Wt 69.1 kg
[2018-09-13 16:27] VITALS: BP 148/72
[2018-09-13] MEDS ORDERED: ketorolac tromethamine 15mg/ml inj. IM ONE (18:50)
[2018-09-13] MEDS ORDERED: ONDA4TAB6 PO (20:19)
== END 2018-09-13 20:27 | disposition home or self-care (01) ==
LOC: ER 14:29
DX: R10.31 Right lower quadrant pain (principal); M54.5 Low back pain; R22.41 Localized swelling, mass and lump, right lower limb; E78.00 Pure hypercholesterolemia, unspecified; I10 Essential (primary) hypertension; F41.9 Anxiety disorder, unspecified; M79.7 Fibromyalgia; F32.9 Major depressive disorder, single episode, unspecified; Z90.710 Acquired absence of both cervix and uterus; Z90.49 Acquired absence of other specified parts of digestive tract; Z79.82 Long term (current) use of aspirin
CPT/HCPCS: 74176; 96372; 99284; J1885

== ENCOUNTER 2018-11-12 17:56 | Inpatient (IN) | payer MEDICARE, MEDICAID ==
[~2018-11-12] VITALS: Ht 160 cm; Wt 76.8 kg
[~2018-11-12 17:56] MED LIST changes: +ONDA4TAB6 PO
[2018-11-12 19:20] LABS: BASOPHILS # (AUTO) 0.1 X10'3 (0-0.2); BASOPHILS % (AUTO) 1.3 % (0-1); EOSINOPHILS # (AUTO) 0.3 X10'3 (0-0.9); EOSINOPHILS % (AUTO) 4.4 % (0-6); HEMATOCRIT 41.2 % (35.0-45.0); HEMOGLOBIN 13.7 g/dl (12.0-16.0); LYMPHOCYTES # (AUTO) 1.3 X10'3 (1.1-4.8); LYMPHOCYTES % (AUTO) 16.6 % (21-51); MEAN CORPUSCULAR HEMOGLOBIN 27.7 PG (27.0-31.0); MEAN CORPUSCULAR HGB CONC 33.2 g/dL (33.0-36.5); MEAN CORPUSCULAR VOLUME 83.4 FL (78-98); MEAN PLATELET VOLUME 7.9 FL (7.4-10.4); MONOCYTES # (AUTO) 0.6 X10'3 (0-0.9); MONOCYTES % (AUTO) 8.1 % (2-12); NEUTROPHILS # (AUTO) 5.5 X10'3 (1.8-7.7); NEUTROPHILS % (AUTO) 69.6 % (42-75); PLATELET COUNT 272 X10'3 (140-440); RED BLOOD COUNT 4.94 X10'6 (4.20-5.60); RED CELL DISTRIBUTION WIDTH 18.2 % (11.5-14.5)
[2018-11-12 19:32] LABS: ALANINE AMINOTRANSFERASE 32 U/L (12-78); ALBUMIN 3.8 G/DL (3.4-5.0); ALKALINE PHOSPHATASE 112 IU/L (46-116); ANION GAP 8 (8-16); ASPARTATE AMINO TRANSFERASE 18 U/L (10-37); BILIRUBIN,TOTAL 0.2 MG/DL (0.1-1.0); BLOOD UREA NITROGEN 25 MG/DL (7-18); CALCIUM 9.5 MG/DL (8.5-10.1); CHLORIDE 102 MMOL/L (99-107); CREATININE 1.39 MG/DL (0.40-0.90); GLUCOSE 99 MG/DL (70-104); POTASSIUM 3.8 MMOL/L (3.5-5.1); SODIUM 140 MMOL/L (135-145); TOTAL CARBON DIOXIDE 30.5 MMOL/L (24-32); TOTAL PROTEIN 7.6 G/DL (6.4-8.2); eGFR 38 ML/MIN
[2018-11-12] MEDS ORDERED: morphine 4 MG/ML inj SYRINge IV ONE (20:55)
[2018-11-12 21:10] LABS: INR 0.9 INR; PARTIAL THROMBOPLASTIN TIME 27 SECONDS (22-32); PROTHROMBIN TIME 9.6 SECONDS (9.0-12.0)
[2018-11-12] MEDS ORDERED: acetaminophen 325mg tablet PO ONE (21:10)
[2018-11-12 21:18] LABS: ETHANOL < 0.010 GM/DL (0.0-0.010); MAGNESIUM 2.2 MG/DL (1.5-2.4); PHOSPHORUS 4.3 MG/DL (2.3-4.5); TROPONIN I < 0.04 NG/ML (0.0-0.05)
[2018-11-12 21:30] LABS: CLARITY,URINE CLEAR (Clear); COLOR,URINE YELLOW (Yellow); GLUCOSE, URINE NEGATIVE (Neg); KETONES,URINE NEGATIVE (Neg); LEUKOCYTE ESTERASE ,URINE TRACE (Neg); NITRITES, URINE NEGATIVE (Neg); OCCULT BLOOD,URINE NEGATIVE (Neg); PH,URINE 6.5 (4.8-8.0); PROTEIN,URINE NEGATIVE (Neg); UROBILINOGEN,URINE 0.2 E.U/dL (0.2-1.0)
[2018-11-12 21:41] LABS: URINE AMPHETAMINE SCREEN POSITIVE (Neg); URINE BARBITUATE SCREEN NEGATIVE (Neg); URINE BENZODIAZEPINES SCREEN NEGATIVE (Neg); URINE CANNABINOID SCREEN NEGATIVE (Neg); URINE COCAINE SCREEN NEGATIVE (Neg); URINE METHADONE SCREEN NEGATIVE (Neg); URINE OPIATE SCREEN NEGATIVE (Neg); URINE PHENCYCLIDINE SCREEN NEGATIVE (Neg)
[2018-11-12 21:42] LABS: UA COLLECTION TYPE CLN CATCH MIDSTREAM
[2018-11-12 21:48] LABS: BACTERIA,URINE 1+ /HPF (Neg); RBC,URINE 0-2 /HPF (0-2); SQUAMOUS EPITHELIAL CELL,UR MODERATE /LPF (FEW); WBC,URINE 0-4 /HPF (0-4)
[2018-11-12] MEDS ORDERED: HYDROcodone/acetaminophen 5mg/325mg tablet PO ONE (22:25)
--- NOTE | 2018-11-12 23:09 | NUR ---
Teleneurology speaking with patient.
[2018-11-12] MEDS ORDERED: POTA10TA19 PO (23:39)
[2018-11-12] MEDS ORDERED: ATOR40TA PO (23:39)
--- NOTE | 2018-11-13 00:10 | NUR ---
Dr. Rudd at bedside interviewing patient.
[2018-11-13] MEDS ORDERED: magnesium hydroxide 30ml (MOM) UD suspension PO PRN (00:15)
[2018-11-13] MEDS ORDERED: mag hydrox/Alum hydrox/simeth 30ml oral suspension PO PRN (00:15)
[2018-11-13] MEDS ORDERED: acetaminophen 325mg tablet PO PRN ×2 (00:15)
[2018-11-13] MEDS ORDERED: ondansetron/PF 4mg/2ml inj IV PRN (00:15)
[2018-11-13] MEDS ORDERED: HYDROcodone/acetaminophen 5mg/325mg tablet PO PRN (00:15)
[2018-11-13] MEDS: normal saline 1000ml 1,000 ML IV SCH ×2 (00:40→10:14)
--- NOTE | 2018-11-13 01:22 | NUR ---
Patient repositioned for comfort. She denies any requests at this time.
[2018-11-13] MEDS: HYDROcodone/acetaminophen 10/325mg tab PO PRN ×4 (02:04→18:07)
[2018-11-13] MEDS ORDERED: morphine 4 MG/ML inj SYRINge IV ONE (04:55)
--- NOTE | 2018-11-13 05:05 | NUR ---
Patient is crying and complaining of increasing pain to foot. CSM intact with good capillary refill. Dr. Rudd contacted and order for 4mg of morphine IV obtained and provided.
[2018-11-13] MEDS ORDERED: HYDR-4353 PO (07:09)
[2018-11-13] MEDS: metoprolol succinate 25mg (24-HOUR) SR. Tablet PO SCH (08:00)
[2018-11-13] MEDS: HYDROchlorothiazide 12.5mg capsule PO SCH (08:00)
[2018-11-13] MEDS: pantoprazole 40mg Tablet.DR PO SCH (08:11)
[2018-11-13] MEDS: furosemide 20MG tablet PO SCH (08:11)
[2018-11-13] MEDS: enoxaparin 40mg/0.4ml syringe SUBCUT SCH (08:11)
[2018-11-13] MEDS: aspirin 81mg tab.chew PO SCH ×2 (08:12→18:01)
[2018-11-13] MEDS: potassium chloride 10mEq ER tablet PO SCH (08:12)
[2018-11-13 10:00] VITALS: BP 103/57
[2018-11-13 18:00] VITALS: BP 129/60
[2018-11-13] MEDS: gabapentin 300mg capsule PO SCH (20:06)
[2018-11-13] MEDS: atorvastatin 20mg tablet PO SCH (20:06)
[2018-11-13] MEDS ORDERED: temazepam 15mg capsule PO PRN (21:00)
[2018-11-13 22:00] VITALS: BP 112/60
[2018-11-14] MEDS: HYDROcodone/acetaminophen 10/325mg tab PO PRN ×4 (01:58→20:05)
[2018-11-14 06:00] VITALS: BP 115/60
--- NOTE | 2018-11-14 06:18 | NUR ---
REPORT GIVEN TO CARYL CEDILLO
[2018-11-14 06:35] LABS: BASOPHILS # (AUTO) 0.1 X10'3 (0-0.2); BASOPHILS % (AUTO) 1.1 % (0-1); EOSINOPHILS # (AUTO) 0.3 X10'3 (0-0.9); HEMATOCRIT 34.2 % (35.0-45.0); HEMOGLOBIN 11.4 g/dl (12.0-16.0); LYMPHOCYTES # (AUTO) 1.3 X10'3 (1.1-4.8); LYMPHOCYTES % (AUTO) 20.2 % (21-51); MEAN CORPUSCULAR HEMOGLOBIN 27.7 PG (27.0-31.0); MEAN CORPUSCULAR HGB CONC 33.2 g/dL (33.0-36.5); MEAN CORPUSCULAR VOLUME 83.5 FL (78-98); MEAN PLATELET VOLUME 7.9 FL (7.4-10.4); MONOCYTES # (AUTO) 0.8 X10'3 (0-0.9); MONOCYTES % (AUTO) 12.8 % (2-12); NEUTROPHILS # (AUTO) 3.8 X10'3 (1.8-7.7); NEUTROPHILS % (AUTO) 60.9 % (42-75); PLATELET COUNT 223 X10'3 (140-440); RED CELL DISTRIBUTION WIDTH 17.7 % (11.5-14.5); WHITE BLOOD COUNT 6.3 X10'3 (4.5-11.0)
[2018-11-14 06:47] LABS: ANION GAP 7 (8-16); BLOOD UREA NITROGEN 22 MG/DL (7-18); BUN/CREATININE RATIO 23.2 (6.6-38.0); CHLORIDE 104 MMOL/L (99-107); CREATININE 0.95 MG/DL (0.40-0.90); GLUCOSE 87 MG/DL (70-104); POTASSIUM 3.7 MMOL/L (3.5-5.1); SODIUM 140 MMOL/L (135-145); eGFR 59 ML/MIN
[2018-11-14] MEDS: enoxaparin 40mg/0.4ml syringe SUBCUT SCH (09:08)
[2018-11-14] MEDS: pantoprazole 40mg Tablet.DR PO SCH (09:09)
[2018-11-14] MEDS: furosemide 20MG tablet PO SCH (09:09)
[2018-11-14] MEDS: potassium chloride 10mEq ER tablet PO SCH (09:09)
[2018-11-14] MEDS: aspirin 81mg tab.chew PO SCH ×2 (09:09→16:37)
[2018-11-14] MEDS: metoprolol succinate 25mg (24-HOUR) SR. Tablet PO SCH (09:09)
[2018-11-14] MEDS: HYDROchlorothiazide 12.5mg capsule PO SCH (09:10)
[2018-11-14 18:00] VITALS: BP 104/62
--- NOTE | 2018-11-14 18:37 | NUR ---
Patient in room [facility] 4012. I have received report from Carolynn CEDILLO and had the opportunity to ask questions and assume patient care.
[2018-11-14] MEDS: atorvastatin 20mg tablet PO SCH (20:03)
[2018-11-14] MEDS: gabapentin 300mg capsule PO SCH (20:03)
[2018-11-14 22:00] VITALS: BP 95/46
== END 2018-11-14 22:25 | disposition short-term general hospital (02) | DRG 551 ==
LOC: ER 17:57 → ORTHO 4S 11-13 07:46
PROVIDERS: ADMIT Hospitalist; ATTEND Hospitalist
DX: M48.061 Spinal stenosis, lumbar region without neurogenic claudication (principal); N17.0 Acute kidney failure with tubular necrosis; M84.472A Pathological fracture, left ankle, initial encounter for fracture; M84.48XA Pathological fracture, other site, initial encounter for fracture; I10 Essential (primary) hypertension; I72.3 Aneurysm of iliac artery; M85.80 Other specified disorders of bone density and structure, unspecified site; M79.7 Fibromyalgia; N28.1 Cyst of kidney, acquired; E78.00 Pure hypercholesterolemia, unspecified; W01.0XXA Fall on same level from slipping, tripping and stumbling without subsequent striking against object, initial encounter; K21.9 Gastro-esophageal reflux disease without esophagitis; I25.10 Atherosclerotic heart disease of native coronary artery without angina pectoris; F41.8 Other specified anxiety disorders; M19.90 Unspecified osteoarthritis, unspecified site; G58.8 Other specified mononeuropathies; F17.210 Nicotine dependence, cigarettes, uncomplicated; Z96.651 Presence of right artificial knee joint; I25.2 Old myocardial infarction; Z90.710 Acquired absence of both cervix and uterus; Z95.5 Presence of coronary angioplasty implant and graft; Z90.49 Acquired absence of other specified parts of digestive tract; Z79.899 Other long term (current) drug therapy; Z79.82 Long term (current) use of aspirin; Z86.73 Personal history of transient ischemic attack (TIA), and cerebral infarction without residual deficits; Z82.49 Family history of ischemic heart disease and other diseases of the circulatory system; Y93.89 Activity, other specified; Y92.098 Other place in other non-institutional residence as the place of occurrence of the external cause; Y99.8 Other external cause status
CPT/HCPCS: 36415; 70450; 72125; 72131; 72148; 73080; 73610; 80048; 80053; 80305; 80320; 81001; 83735; 84100; 84443; 84484; 85025; 85610; 85730; 87070; 87088; 96374; 97161; 97530; 99285; G0378; J1650; J2270; J7030

== ENCOUNTER 2018-12-31 12:33 | Emergency (ER) | payer MEDICARE, MEDICAID ==
[~2018-12-31] VITALS: Ht 160 cm; Wt 74.1 kg
[~2018-12-31 12:33] MED LIST changes: -ALBU6.7H INH; -ALPR-623 PO; +ATOR40TA PO; -HYDR-3972 PO; +HYDR-4353 PO; -MECL-111 PO; -OMEP20CA10 PO; +OMEP20CA11 PO; -ONDA4TAB6 PO; +POTA10TA19 PO; -PROM25TA14 PO; -VENL150C2 PO; -WALKERFR
[2018-12-31] MEDS ORDERED: ondansetron 4mg rapidly disintigrating tab PO ONE ×2 (13:30→14:10)
[2018-12-31] MEDS ORDERED: HYDROcodone/acetaminophen 5mg/325mg tablet PO ONE (13:30)
[2018-12-31] MEDS ORDERED: sulfamethoxazole/trimethoprim DS (800/160mg) tablet PO ONE (14:10)
[2018-12-31 14:11] LABS: CLARITY,URINE CLEAR (Clear); COLOR,URINE STRAW (Yellow); GLUCOSE, URINE NEGATIVE (Neg); KETONES,URINE NEGATIVE (Neg); LEUKOCYTE ESTERASE ,URINE NEGATIVE (Neg); NITRITES, URINE NEGATIVE (Neg); OCCULT BLOOD,URINE NEGATIVE (Neg); PROTEIN,URINE NEGATIVE (Neg); UROBILINOGEN,URINE 0.2 E.U/dL (0.2-1.0)
[2018-12-31 14:18] LABS: URINE AMPHETAMINE SCREEN POSITIVE (Neg); URINE BARBITUATE SCREEN NEGATIVE (Neg); URINE BENZODIAZEPINES SCREEN POSITIVE (Neg); URINE CANNABINOID SCREEN NEGATIVE (Neg); URINE COCAINE SCREEN NEGATIVE (Neg); URINE METHADONE SCREEN NEGATIVE (Neg); URINE OPIATE SCREEN NEGATIVE (Neg); URINE PHENCYCLIDINE SCREEN NEGATIVE (Neg)
[2018-12-31 14:24] LABS: UA COLLECTION TYPE CLN CATCH MIDSTREAM
[2018-12-31 17:09] VITALS: BP 163/74
== END 2018-12-31 18:01 | disposition short-term general hospital (02) ==
LOC: ER 12:33
DX: M96.89 Other intraoperative and postprocedural complications and disorders of the musculoskeletal system (principal); G83.4 Cauda equina syndrome; E78.00 Pure hypercholesterolemia, unspecified; I10 Essential (primary) hypertension; I25.2 Old myocardial infarction; M19.90 Unspecified osteoarthritis, unspecified site; M79.7 Fibromyalgia; Z90.49 Acquired absence of other specified parts of digestive tract; Z90.710 Acquired absence of both cervix and uterus; Z98.890 Other specified postprocedural states; Z79.82 Long term (current) use of aspirin; Z79.899 Other long term (current) drug therapy
CPT/HCPCS: 72131; 73700; 80305; 81003; 99285

== ENCOUNTER 2022-08-25 14:54 | Emergency (ER) | payer MEDICARE, MEDICAID ==
[~2022-08-25] VITALS: Ht 157.5 cm; Wt 81.0 kg
[~2022-08-25 14:54] MED LIST changes: -OMEP20CA11 PO; +OMEP20CA15 PO; +POTA-192 PO; -POTA10TA19 PO
[2022-08-25] MEDS ORDERED: normal saline 1000ML IV soln IVB ONE (16:05)
[2022-08-25 16:29] LABS: BASOPHILS # (AUTO) 0.1 X10'3 (0-0.2); BASOPHILS % (AUTO) 1.2 % (0-1); EOSINOPHILS # (AUTO) 0.6 X10'3 (0-0.9); EOSINOPHILS % (AUTO) 6.7 % (0-6); HEMATOCRIT 36.7 % (35.0-45.0); HEMOGLOBIN 11.8 g/dl (12.0-16.0); LYMPHOCYTES # (AUTO) 1.4 X10'3 (1.1-4.8); MEAN CORPUSCULAR HEMOGLOBIN 24.2 PG (27.0-31.0); MEAN CORPUSCULAR HGB CONC 32.2 g/dL (33.0-36.5); MEAN CORPUSCULAR VOLUME 75.1 FL (78-98); MEAN PLATELET VOLUME 7.1 FL (7.4-10.4); MONOCYTES # (AUTO) 0.7 X10'3 (0-0.9); MONOCYTES % (AUTO) 8.7 % (2-12); NEUTROPHILS # (AUTO) 5.6 X10'3 (1.8-7.7); NEUTROPHILS % (AUTO) 66.4 % (42-75); PLATELET COUNT 369 X10'3 (140-440); RED BLOOD COUNT 4.89 X10'6 (4.20-5.60); RED CELL DISTRIBUTION WIDTH 22.6 % (11.5-14.5); WHITE BLOOD COUNT 8.4 X10'3 (4.5-11.0)
[2022-08-25 16:46] LABS: APTT 27 SECONDS (22-32)
[2022-08-25 16:48] LABS: ALANINE AMINOTRANSFERASE 24 U/L (12-78); ALBUMIN 3.4 G/DL (3.4-5.0); ALBUMIN/GLOBULIN RATIO 0.9 (1.1-1.5); ALKALINE PHOSPHATASE 101 IU/L (46-116); ANION GAP 7 (8-16); ASPARTATE AMINO TRANSFERASE 20 U/L (10-37); BILIRUBIN,TOTAL 0.2 MG/DL (0.1-1.0); BLOOD UREA NITROGEN 18 MG/DL (7-18); BUN/CREATININE RATIO 18.9 (6.6-38.0); CALCIUM 10.4 MG/DL (8.5-10.1); CHLORIDE 104 MMOL/L (99-107); CREATININE 0.95 MG/DL (0.40-0.90); GLUCOSE 101 MG/DL (70-104); POTASSIUM 3.5 MMOL/L (3.5-5.1); SODIUM 139 MMOL/L (135-145); TOTAL CARBON DIOXIDE 27.9 MMOL/L (24-32); TOTAL PROTEIN 7.3 G/DL (6.4-8.2); eGFR 58 ML/MIN
[2022-08-25 16:50] LABS: PLATELET ESTIMATE NORMAL
[2022-08-25 16:51] LABS: ANISOCYTOSIS 3+; MICROCYTOSIS 1+
[2022-08-25 17:59] VITALS: BP 155/81
[2022-08-25] MEDS ORDERED: LYR25C PO (17:59)
== END 2022-08-25 18:16 | disposition home or self-care (01) ==
LOC: ER 14:54
DX: E86.0 Dehydration (principal); M79.604 Pain in right leg; M79.605 Pain in left leg; I10 Essential (primary) hypertension; E78.00 Pure hypercholesterolemia, unspecified; M19.90 Unspecified osteoarthritis, unspecified site; G89.29 Other chronic pain; M54.50 Low back pain, unspecified; F17.200 Nicotine dependence, unspecified, uncomplicated; Z90.49 Acquired absence of other specified parts of digestive tract; Z90.710 Acquired absence of both cervix and uterus
CPT/HCPCS: 71045; 80053; 83880; 85008; 85025; 85610; 85730; 93005; 93970; 96360; 99285; J7030

== ENCOUNTER 2022-10-21 14:31 | Emergency (ER) | payer MEDICARE, MEDICAID ==
[~2022-10-21] VITALS: Ht 152.4 cm; Wt 72.0 kg
[~2022-10-21 14:31] MED LIST changes: +LYR25C PO
[2022-10-21 15:24] LABS: BASOPHILS # (AUTO) 0.1 X10'3 (0-0.2); BASOPHILS % (AUTO) 1.3 % (0-1); EOSINOPHILS # (AUTO) 0.4 X10'3 (0-0.9); EOSINOPHILS % (AUTO) 4.1 % (0-6); HEMATOCRIT 36.5 % (35.0-45.0); HEMOGLOBIN 11.8 g/dl (12.0-16.0); LYMPHOCYTES # (AUTO) 1.3 X10'3 (1.1-4.8); LYMPHOCYTES % (AUTO) 13.4 % (21-51); MEAN CORPUSCULAR HGB CONC 32.5 g/dL (33.0-36.5); MEAN CORPUSCULAR VOLUME 77.2 FL (78-98); MEAN PLATELET VOLUME 7.4 FL (7.4-10.4); MONOCYTES # (AUTO) 0.9 X10'3 (0-0.9); MONOCYTES % (AUTO) 9.9 % (2-12); NEUTROPHILS # (AUTO) 6.7 X10'3 (1.8-7.7); NEUTROPHILS % (AUTO) 71.3 % (42-75); PLATELET COUNT 416 X10'3 (140-440); RED BLOOD COUNT 4.73 X10'6 (4.20-5.60); RED CELL DISTRIBUTION WIDTH 19.9 % (11.5-14.5); WHITE BLOOD COUNT 9.4 X10'3 (4.5-11.0)
[2022-10-21 15:38] LABS: ANISOCYTOSIS 2+; HYPOCHROMASIA 1+; LARGE PLATELETS FEW; MICROCYTOSIS 1+; PLATELET ESTIMATE NORMAL; POIKILOCYTOSIS 1+
[2022-10-21 15:42] LABS: ALANINE AMINOTRANSFERASE 12 U/L (12-78); ALBUMIN 3.4 G/DL (3.4-5.0); ALBUMIN/GLOBULIN RATIO 0.9 (1.1-1.5); ALKALINE PHOSPHATASE 107 IU/L (46-116); ANION GAP 12 (8-16); ASPARTATE AMINO TRANSFERASE 18 U/L (10-37); BILIRUBIN,TOTAL 0.7 MG/DL (0.1-1.0); BLOOD UREA NITROGEN 18 MG/DL (7-18); BUN/CREATININE RATIO 17.1 (10.0-20.0); CALCIUM 9.2 MG/DL (8.5-10.1); CHLORIDE 107 MMOL/L (99-107); CREATININE 1.05 MG/DL (0.40-0.90); GLUCOSE 115 MG/DL (70-104); POTASSIUM 3.5 MMOL/L (3.5-5.1); SODIUM 140 MMOL/L (135-145); TOTAL CARBON DIOXIDE 20.6 MMOL/L (24-32); TOTAL PROTEIN 7.1 G/DL (6.4-8.2); eGFR 52 ML/MIN
[2022-10-21 16:58] VITALS: BP 155/65
[2022-10-21] MEDS ORDERED: cephalexin 250mg capsule PO ONE (18:25)
[2022-10-21] MEDS ORDERED: NYSTATIN 60 GM POWDER-BULK CONTAINER TP STA (18:25)
[2022-10-21] MEDS ORDERED: fluconazole 150mg tablet PO ONE (18:25)
[2022-10-21] MEDS ORDERED: nystatin 15 GM powder TP STA (19:07)
[2022-10-21] MEDS ORDERED: CEPH-585 PO (19:10)
[2022-10-21] MEDS ORDERED: NYSPWD TP (19:10)
[2022-10-21] MEDS ORDERED: FLUC200T PO (19:10)
== END 2022-10-21 19:35 | disposition home or self-care (01) ==
LOC: ER 14:32
DX: B34.9 Viral infection, unspecified (principal); I11.9 Hypertensive heart disease without heart failure; I50.9 Heart failure, unspecified; G89.29 Other chronic pain; M54.9 Dorsalgia, unspecified; F31.9 Bipolar disorder, unspecified; Z87.81 Personal history of (healed) traumatic fracture; Z79.899 Other long term (current) drug therapy; Z79.82 Long term (current) use of aspirin; Z79.1 Long term (current) use of non-steroidal anti-inflammatories (NSAID); Z79.2 Long term (current) use of antibiotics
CPT/HCPCS: 36415; 71045; 80053; 83880; 84484; 85008; 85025; 93005; 99285